=== PATIENT | female | born 1995 | race Caucasian/White ===

== ENCOUNTER 2019-09-17 12:08 | Inpatient (IN) ==
[2019-09-17 13:17] LABS: BASO# 0.02 X1000 (0.0-0.2); BASO% 0.3 % (0.0-0.8); EOS# 0.17 X1000 (0.0-0.7); EOS% 2.5 % (0.0-10.0); HEMATOCRIT 21.5 % (37.0-47.0); HEMOGLOBIN 6.2 g/dL (12.0-16.0); IMM GRAN# 0.02 X1000 (0.0-0.04); IMM GRAN% 0.3 % (0.0-0.5); LYMPH# 1.99 X1000 (1.2-3.4); MCH 21.8 PG (27-31); MCHC 28.8 g/dL (33-37); MCV 75.7 FL (81-99); MONO# 0.42 X1000 (0.11-0.59); MONO% 6.1 % (1.7-9.3); MPV 9.6 FL (7.4-10.4); NEUT# 4.25 X1000 (1.4-6.5); NEUT% 61.8 % (42.2-75.2); PLT 424 X1000 (130-400); RBC 2.84 XMIL (4.2-5.4); RDW 15.6 % (11.5-14.5); WBC 6.87 X1000 (4.8-10.8)
[2019-09-17 13:18] LABS: AGAP 10; ALBUMIN 4.2 g/dL (3.5-5.0); ALKALINE PHOSPHATASE 77 U/L (32-104); BUN 10 mg/dL (8-22); CALCIUM 9.1 mg/dL (8.8-10.2); CHLORIDE 106 mmol/L (98-107); COSMO 280; CREATININE 0.5 mg/dL (0.5-0.9); ESTIMATED GFR > 60; GLUCOSE 94 mg/dL (70-104); GOT 16 U/L (10-30); GPT 19 U/L (10-36); POTASSIUM 3.7 mmol/L (3.5-5.1); SODIUM 141 mmol/L (136-145); TCO2 25 mmol/L (25-35); TOTAL PROTEIN 7.3 g/dL (6.3-8.3)
[2019-09-17 13:23] LABS: BILIRUBIN URINE NEGATIVE (NEGATIVE); BLOOD URINE 4+ (NEGATIVE); CLARITY VERY CLOUDY (CLEAR); COLOR YELLOW; GLUCOSE URINE NEGATIVE (NEGATIVE); KETONE URINE NEGATIVE (NEGATIVE); LEUKOCYTES URINE NEGATIVE (NEGATIVE); NITRITE URINE NEGATIVE (NEGATIVE); PROTEIN URINE TRACE mg/dL (NEGATIVE); UROBILINOGEN URINE NORMAL
[2019-09-17 13:35] LABS: URINE RBC TNTC /HPF (<10); URINE SOURCE CLEAN CATCH
[2019-09-17] MEDS ORDERED: NS 250 ML IV ONE (14:20)
[2019-09-17] MEDS ORDERED: TYLENOL PO PRN (15:13)
[2019-09-17] MEDS ORDERED: ZOFRAN IV PRN (15:13)
[2019-09-17 15:38] LABS: IRON SATURATION 3 %; TIBC 412 ug/dL; TOTAL IRON 12 ug/dL (49-151); UNBOUND IRON 400 ug/dL (112-346)
[2019-09-17] MEDS ORDERED: VENOFER 500 MG in NS 250 ML IV ONE (16:47)
[2019-09-17] MEDS ORDERED: NS 1,000 ML ONE (21:49)
[2019-09-18] MEDS: ICAR-C PO SCH ×2 (01:26→09:25)
[2019-09-18 06:45] LABS: INR 0.98; PROTIME 13.5 Seconds (11.0-16.0); PTT 36.4 Seconds (22.3-41.8)
[2019-09-18 06:54] LABS: AGAP 8; ALBUMIN 3.8 g/dL (3.5-5.0); ALKALINE PHOSPHATASE 65 U/L (32-104); BUN 12 mg/dL (8-22); CALCIUM 8.7 mg/dL (8.8-10.2); CHLORIDE 110 mmol/L (98-107); COSMO 281; CREATININE 0.5 mg/dL (0.5-0.9); ESTIMATED GFR > 60; GLUCOSE 101 mg/dL (70-104); GOT 13 U/L (10-30); GPT 17 U/L (10-36); MAGNESIUM 1.9 mg/dL (1.5-2.7); POTASSIUM 4.5 mmol/L (3.5-5.1); SODIUM 141 mmol/L (136-145); TCO2 23 mmol/L (25-35); TOTAL PROTEIN 6.3 g/dL (6.3-8.3)
[2019-09-18 07:07] LABS: BASO# 0.01 X1000 (0.0-0.2); BASO% 0.1 % (0.0-0.8); EOS# 0.22 X1000 (0.0-0.7); EOS% 3.2 % (0.0-10.0); HEMATOCRIT 24.4 % (37.0-47.0); HEMOGLOBIN 7.4 g/dL (12.0-16.0); IMM GRAN# 0.01 X1000 (0.0-0.04); IMM GRAN% 0.1 % (0.0-0.5); LYMPH# 1.78 X1000 (1.2-3.4); LYMPH% 25.8 % (20.5-51.1); MCH 23.9 PG (27-31); MCHC 30.3 g/dL (33-37); MCV 78.7 FL (81-99); MONO# 0.57 X1000 (0.11-0.59); MONO% 8.3 % (1.7-9.3); MPV 9.5 FL (7.4-10.4); NEUT% 62.5 % (42.2-75.2); PLT 354 X1000 (130-400); RDW 16.5 % (11.5-14.5); WBC 6.89 X1000 (4.8-10.8)
[2019-09-18 09:20] LABS: FERRITIN 4 ng/mL (13-150)
[2019-09-18 11:53] VITALS: BP 128/80
== END 2019-09-18 12:55 | disposition home or self-care (01) ==
LOC: P.ED 12:08 → SUATTDRO 12:09 → P.MEDSURG 20:52
PROVIDERS: ATTEND Internal Medicine